=== PATIENT | male | born 1960 | race Caucasian/White ===

== ENCOUNTER 2016-06-18 11:09 | Emergency (ER) | payer MEDICARE, OTHER ==
[2016-06-18 12:22] LABS: HEMOGLOBIN 13.3 gm/dl (14.0-17.5); RED BLOOD COUNT 4.56 M/UL (4.20-5.50); WHITE BLOOD COUNT 18.8 K/UL (4.5-11.0)
[2016-06-18 12:45] LABS: BUN/CREATININE RATIO 23 (0-10)
[2016-09-22] MEDS ORDERED: DITROPAN 5 MG TA5 MG PO (11:17)
[2016-09-22] MEDS ORDERED: DILTIAZEM 24HR120 MG PO (11:18)
[2016-09-22] MEDS ORDERED: ASPIRIN 325MG325 MG NG (11:18)
[2016-09-22] MEDS ORDERED: LIPITOR TAB 1010 MG PO (11:18)
[2016-09-22] MEDS ORDERED: FOLIC ACID1 MG PO (11:19)
[2016-09-22] MEDS ORDERED: LAMICTAL TAB 2525 MG PO (11:19)
[2016-09-22] MEDS ORDERED: RISPERIDONE0.5 MG PO (11:20)
[2016-09-22] MEDS ORDERED: LEVOTHYROXINE25 MCG PO (11:20)
[2016-09-22] MEDS ORDERED: ATIVAN 1MG TABLE1 MG PO (11:22)
[2016-09-22] MEDS ORDERED: CELEXA20 MG PO (11:42)
[2016-09-22] MEDS ORDERED: ESCITALOPRAM OX10 MG PO (11:42)
[2016-09-22] MEDS ORDERED: MIRALAX17 GM PO (11:43)
== END 2016-06-18 22:40 | disposition short-term general hospital (02) ==
LOC: ER1 11:09 → ZEROF 16:04
PROVIDERS: Emergency Medicine
DX: J18.9 Pneumonia, unspecified organism (principal); Z88.0 Allergy status to penicillin; Z79.899 Other long term (current) drug therapy
CPT/HCPCS: 36415; 36600; 71010; 80053; 81001; 82803; 83605; 83690; 83880; 84484; 85025; 87040; 87081; 87086; 87880; 93005; 96361; 96365; 99291; J0456; J0696; J7030; J7050; Q9963

== ENCOUNTER → 2016-07-12 | Outpatient (CLI) | payer MEDICARE, OTHER ==
[~2016-07-12] MED LIST: ASPIRIN 325MG325 MG NG; ATIVAN 1MG TABLE1 MG PO; CELEXA20 MG PO; DILTIAZEM 24HR120 MG PO; DITROPAN 5 MG TA5 MG PO; ESCITALOPRAM OX10 MG PO; FOLIC ACID1 MG PO; LAMICTAL TAB 2525 MG PO; LEVOTHYROXINE25 MCG PO; LIPITOR TAB 1010 MG PO; MIRALAX17 GM PO; RISPERIDONE0.5 MG PO
[2016-07-12 15:11] LABS: HEMOGLOBIN 13.2 gm/dl (14.0-17.5); RED BLOOD COUNT 4.59 M/UL (4.20-5.50); WHITE BLOOD COUNT 11.2 K/UL (4.5-11.0)
[2016-07-12 15:16] LABS: BUN/CREATININE RATIO 18 (0-10)
== END ==
LOC: LAB 14:16
PROVIDERS: Nurse Practitioner Primary Care
DX: J18.9 Pneumonia, unspecified organism (principal); M54.5 Low back pain; R91.8 Other nonspecific abnormal finding of lung field; K59.8 Other specified functional intestinal disorders; S06.2X9D Diffuse traumatic brain injury with loss of consciousness of unspecified duration, subsequent encounter; J44.9 Chronic obstructive pulmonary disease, unspecified; F41.1 Generalized anxiety disorder
CPT/HCPCS: 36415; 71020; 72040; 72072; 72110; 80053; 83735; 84443; 85025

== ENCOUNTER → 2016-07-13 | Outpatient (CLI) | payer MEDICARE, OTHER | LOC: OPSV 12:00 | DX: L89.152 Pressure ulcer of sacral region, stage 2 (principal) | CPT/HCPCS: G0463 ==

== ENCOUNTER → 2016-07-15 | Outpatient (CLI) | payer MEDICARE, OTHER | LOC: OPSV 10:30 | DX: L89.152 Pressure ulcer of sacral region, stage 2 (principal) | CPT/HCPCS: G0463 ==

== ENCOUNTER → 2016-07-18 | Outpatient (CLI) | payer MEDICARE, OTHER | LOC: OPSV 10:26 | DX: L89.152 Pressure ulcer of sacral region, stage 2 (principal) | CPT/HCPCS: G0463 ==

== ENCOUNTER → 2016-07-22 | Outpatient (CLI) | payer MEDICARE, OTHER | LOC: OPSV 07-20 10:30 | DX: L89.152 Pressure ulcer of sacral region, stage 2 (principal) | CPT/HCPCS: G0463 ==

== ENCOUNTER → 2016-07-25 | Outpatient (CLI) | payer MEDICARE, OTHER | LOC: OPSV 10:00 | DX: L89.132 Pressure ulcer of right lower back, stage 2 (principal) | CPT/HCPCS: G0463 ==

== ENCOUNTER → 2016-07-27 | Outpatient (CLI) | payer MEDICARE, OTHER | LOC: OPSV 10:00 | DX: L89.152 Pressure ulcer of sacral region, stage 2 (principal) | CPT/HCPCS: G0463 ==

== ENCOUNTER → 2016-07-28 | Outpatient (CLI) | payer MEDICARE, OTHER | LOC: OPSV 16:33 | DX: L89.152 Pressure ulcer of sacral region, stage 2 (principal) | CPT/HCPCS: 87070; 87077; 87186; 87205; G0463 ==

== ENCOUNTER → 2016-08-01 | Outpatient (CLI) | payer MEDICARE, OTHER | LOC: OPSV 07-29 10:30 | DX: L89.152 Pressure ulcer of sacral region, stage 2 (principal) | CPT/HCPCS: G0463 ==

== ENCOUNTER → 2016-08-03 | Outpatient (CLI) | payer MEDICARE, OTHER | LOC: OPSV 10:30 | DX: L89.132 Pressure ulcer of right lower back, stage 2 (principal) | CPT/HCPCS: G0463 ==

== ENCOUNTER → 2016-08-05 | Outpatient (CLI) | payer MEDICARE, OTHER | LOC: OPSV 10:00 | DX: L89.152 Pressure ulcer of sacral region, stage 2 (principal) | CPT/HCPCS: G0463 ==

== ENCOUNTER → 2016-08-08 | Outpatient (CLI) | payer MEDICARE, OTHER | LOC: OPSV 10:30 | DX: L89.152 Pressure ulcer of sacral region, stage 2 (principal) | CPT/HCPCS: G0463 ==

== ENCOUNTER → 2016-08-10 | Outpatient (CLI) | payer MEDICARE, OTHER | LOC: OPSV 10:25 | DX: L89.152 Pressure ulcer of sacral region, stage 2 (principal) | CPT/HCPCS: G0463 ==

== ENCOUNTER → 2016-08-12 | Outpatient (CLI) | payer MEDICARE, OTHER | LOC: OPSV 11:00 | DX: L89.152 Pressure ulcer of sacral region, stage 2 (principal) | CPT/HCPCS: G0463 ==

== ENCOUNTER → 2016-08-15 | Outpatient (CLI) | payer MEDICARE, OTHER | LOC: OPSV 10:30 | DX: L89.152 Pressure ulcer of sacral region, stage 2 (principal) | CPT/HCPCS: G0463 ==

== ENCOUNTER → 2016-08-17 | Outpatient (CLI) | payer MEDICARE, OTHER | LOC: OPSV 10:30 | DX: L89.152 Pressure ulcer of sacral region, stage 2 (principal) | CPT/HCPCS: G0463 ==

== ENCOUNTER → 2016-08-19 | Outpatient (CLI) | payer MEDICARE, OTHER | LOC: OPSV 09:30 | DX: L89.152 Pressure ulcer of sacral region, stage 2 (principal) | CPT/HCPCS: G0463 ==

== ENCOUNTER → 2016-08-22 | Outpatient (CLI) | payer MEDICARE, OTHER | LOC: OPSV 08:39 | DX: L89.152 Pressure ulcer of sacral region, stage 2 (principal) | CPT/HCPCS: G0463 ==

== ENCOUNTER → 2016-08-24 | Outpatient (CLI) | payer MEDICARE, OTHER | LOC: OPSV 10:30 | DX: L89.152 Pressure ulcer of sacral region, stage 2 (principal) | CPT/HCPCS: G0463 ==

== ENCOUNTER → 2016-08-26 | Outpatient (CLI) | payer MEDICARE, OTHER | LOC: OPSV 10:30 | DX: L89.152 Pressure ulcer of sacral region, stage 2 (principal) | CPT/HCPCS: G0463 ==

== ENCOUNTER 2016-08-29 19:46 | Emergency (ER) | payer MEDICARE, OTHER ==
[2016-08-29 23:22] LABS: HEMOGLOBIN 13.1 gm/dl (14.0-17.5); RED BLOOD COUNT 4.64 M/UL (4.20-5.50); WHITE BLOOD COUNT 10.9 K/UL (4.5-11.0)
[2016-08-29 23:34] LABS: BUN/CREATININE RATIO 48 (0-10)
[2016-09-22] MEDS ORDERED: DITROPAN 5 MG TA5 MG PO (11:17)
[2016-09-22] MEDS ORDERED: ASPIRIN 325MG325 MG NG (11:18)
[2016-09-22] MEDS ORDERED: DILTIAZEM 24HR120 MG PO (11:18)
[2016-09-22] MEDS ORDERED: LIPITOR TAB 1010 MG PO (11:18)
[2016-09-22] MEDS ORDERED: FOLIC ACID1 MG PO (11:19)
[2016-09-22] MEDS ORDERED: LAMICTAL TAB 2525 MG PO (11:19)
[2016-09-22] MEDS ORDERED: RISPERIDONE0.5 MG PO (11:20)
[2016-09-22] MEDS ORDERED: LEVOTHYROXINE25 MCG PO (11:20)
[2016-09-22] MEDS ORDERED: ATIVAN 1MG TABLE1 MG PO (11:22)
[2016-09-22] MEDS ORDERED: CELEXA20 MG PO (11:42)
[2016-09-22] MEDS ORDERED: ESCITALOPRAM OX10 MG PO (11:42)
[2016-09-22] MEDS ORDERED: MIRALAX17 GM PO (11:43)
== END 2016-08-30 02:00 | disposition home or self-care (01) ==
LOC: ER1 19:46
PROVIDERS: Physician Assistant
DX: R91.8 Other nonspecific abnormal finding of lung field (principal); J44.9 Chronic obstructive pulmonary disease, unspecified; E87.6 Hypokalemia; F17.210 Nicotine dependence, cigarettes, uncomplicated; I10 Essential (primary) hypertension; F32.9 Major depressive disorder, single episode, unspecified; F41.9 Anxiety disorder, unspecified; Z88.0 Allergy status to penicillin
CPT/HCPCS: 36415; 71250; 80053; 80061; 83735; 84443; 85025; 99284; G0463

== ENCOUNTER → 2016-08-31 | Outpatient (CLI) | payer MEDICARE, OTHER | LOC: OPSV 10:30 | DX: L89.152 Pressure ulcer of sacral region, stage 2 (principal) | CPT/HCPCS: G0463 ==

== ENCOUNTER → 2016-09-05 | Outpatient (CLI) | payer MEDICARE, OTHER | LOC: OPSV 09-02 10:30 | DX: Z48.00 Encounter for change or removal of nonsurgical wound dressing (principal); L89.152 Pressure ulcer of sacral region, stage 2 | CPT/HCPCS: G0463 ==

== ENCOUNTER → 2016-09-09 | Outpatient (CLI) | payer MEDICARE, OTHER | LOC: OPSV 09-07 10:30 | DX: L89.152 Pressure ulcer of sacral region, stage 2 (principal) | CPT/HCPCS: G0463 ==

== ENCOUNTER 2016-09-10 22:01 | Emergency (ER) | payer MEDICARE, OTHER ==
[2016-09-22] MEDS ORDERED: DITROPAN 5 MG TA5 MG PO (11:17)
[2016-09-22] MEDS ORDERED: ASPIRIN 325MG325 MG NG (11:18)
[2016-09-22] MEDS ORDERED: DILTIAZEM 24HR120 MG PO (11:18)
[2016-09-22] MEDS ORDERED: LIPITOR TAB 1010 MG PO (11:18)
[2016-09-22] MEDS ORDERED: FOLIC ACID1 MG PO (11:19)
[2016-09-22] MEDS ORDERED: LAMICTAL TAB 2525 MG PO (11:19)
[2016-09-22] MEDS ORDERED: LEVOTHYROXINE25 MCG PO (11:20)
[2016-09-22] MEDS ORDERED: RISPERIDONE0.5 MG PO (11:20)
[2016-09-22] MEDS ORDERED: ATIVAN 1MG TABLE1 MG PO (11:22)
[2016-09-22] MEDS ORDERED: ESCITALOPRAM OX10 MG PO (11:42)
[2016-09-22] MEDS ORDERED: CELEXA20 MG PO (11:42)
[2016-09-22] MEDS ORDERED: MIRALAX17 GM PO (11:43)
== END 2016-09-11 02:20 | disposition home or self-care (01) ==
LOC: ER1 22:01
DX: L89.154 Pressure ulcer of sacral region, stage 4 (principal); L89.313 Pressure ulcer of right buttock, stage 3
CPT/HCPCS: 99283

== ENCOUNTER → 2016-09-12 | Outpatient (CLI) | payer MEDICARE, OTHER | LOC: OPSV 10:10 | DX: Z48.00 Encounter for change or removal of nonsurgical wound dressing (principal); L89.152 Pressure ulcer of sacral region, stage 2 | CPT/HCPCS: G0463 ==

== ENCOUNTER → 2016-09-20 | Outpatient (CLI) | payer MEDICARE, OTHER | LOC: CT 09:00 | DX: R91.1 Solitary pulmonary nodule (principal); Z53.9 Procedure and treatment not carried out, unspecified reason | CPT/HCPCS: Q9962 ==